=== PATIENT | male | born 1975 | race Caucasian/White ===

== ENCOUNTER 2019-05-09 16:32 | Inpatient (IN) ==
[2019-05-09 16:44] LABS: Basophils # 0.1 K/mm3 (0-0.2); Basophils % 0.9 % (0.1-2.0); Eosinophils # 0.3 K/mm3 (0.0-0.4); Eosinophils % 2.3 % (0.1-12.0); Hematocrit 45.1 % (42.0-52.0); Hemoglobin 14.6 g/dL (14.1-18.0); Lymphocytes # 2.5 K/mm3 (0.7-4.5); Lymphocytes % 21.4 % (10-50); Mean Corpuscular HGB Conc 32.5 g/dL (31.8-35.4); Mean Platelet Volume 7.9 fl (7.4-10.4); Monocytes # 0.8 K/mm3 (0.1-1.0); Monocytes % 7.1 % (1.7-9.3); Neutrophils # 8.1 K/mm3 (1.8-7.8); Neutrophils % 68.2 % (37.0-80.0); Platelet Count 243 K/mm3 (142-424); Red Cell Distribution Width 12.2 % (11.5-17.5); White Blood Count 11.8 K/mm3 (4.8-10.8)
[2019-05-09 16:52] LABS: Anion Gap 10.3 mEq/L (5-15); Calcium 8.7 mg/dL (8.5-10.1)
--- NOTE | 2019-05-09 17:02 | Emergency Department Note ---
ED Disposition Clinical Impression: Acute OR, Non-STEMI (non-ST elevated myocardial infarction) Disposition: Admitted as Observation Condition on Discharge: Serious Referrals: Provider,Referral, [Primary Care Provider] - Time of Disposition: 19:09 - Critical Care Critical Care Time: No Attestation: On 05/09/19, the high probability of a clinically significant, sudden or life threatening deterioration of the following system(s) required my full and direct attention, intervention and personal management. The time I documented below is in addition to time spent performing reported procedures but includes the following listed in this critical care notation. Medical Decision Making - Medical Records Medical records reviewed: Yes: I reviewed the patient's medical records. - Georges Inquiry Pt receiving controlled substance: No Georges was queried for this patient: No Vital Signs: 05/09/19 16:33 05/09/19 16:42 05/09/19 18:02 Temperature 98.1 F Temperature Source Oral Pulse Rate [Right Apical] 92 H 70 Respiratory Rate 18 20 Blood Pressure [Right Arm] 194/113 H 182/108 H 144/97 H Blood Pressure Mean [Right Arm] 140 132 112 Blood Pressure Source [Right Arm] Automatic Cuff Blood Pressure Position [Right Arm] Sitting 02 Sat by Pulse Oximetry 98 98 Oxygen Delivery Method Room Air Room Air - Lab Data Lab results reviewed: Yes: I reviewed the patient's lab results. Lab Results 05/09/19 16:37: WBC 11.8 H, RBC 4.90, Hgb 14.6, Hct 45.1, MCV 92.0, MCH 29.9, MCHC 32.5, RDW 12.2, Plt Count 243, MPV 7.9, Neut % (Auto) 68.2, Lymph % (Auto) 21.4, Ellis % (Auto) 7.1, Eos % (Auto) 2.3, Baso % (Auto) 0.9, Neut # (Auto) 8.1 H, Lymph # (Auto) 2.5, Ellis # (Auto) 0.8, Eos # (Auto) 0.3, Baso # (Auto) 0.1 05/09/19 16:37: Sodium 134 L, Potassium 3.7, Chloride 97 L, Carbon Dioxide 27, Anion Gap 10.3, BUN 5 L, Creatinine 0.85, Estimated Creat Clear 120, Estimated GFR 99, Est GFR ( Amer) 120, Glucose 126 H, Calcium 8.7, Troponin I 26.88 H Result diagrams: 05/09/19 16:37 05/09/19 16:37 Orders (Tests/Meds): ED MEDICATIONS Generic Name Dose Route Start Last Admin Trade Name Freq PRN Reason Stop Dose Admin Hydralazine HCl 10 mg 05/09/19 18:47 Apresoline 20mg/Ml 1ml Vial IV 05/09/19 18:48 ONCE ONE Nitroglycerin/Dextrose 250 mls @ 3 mls/hr 05/09/19 17:30 Nitroglycerin 50mg/250ml D5w IV 06/08/19 17:29 .Q24H SAKINA Protocol 10 MCG/MIN Nitroglycerin 0.4 mg 05/09/19 16:36 05/09/19 16:41 Nitrostat 0.4mg Sl Tablet SL 05/10/19 16:36 0.4 mg Q5MINP PRN Administration Chest Pain Discontinued Medications Generic Name Dose Route Start Last Admin Trade Name Freq PRN Reason Stop Dose Admin Aspirin 162 mg 05/09/19 16:36 05/09/19 16:41 Aspirin 81mg Chewable Tablet PO 05/09/19 16:37 162 mg ONCE ONE Administration Metoprolol Tartrate 5 mg 05/09/19 17:24 05/09/19 17:58 Metoprolol Tartrate 5mg/5ml Vial IV 05/09/19 17:25 5 mg ONCE ONE Administration Metoprolol Tartrate 5 mg 05/09/19 17:25 05/09/19 18:00 Metoprolol Tartrate 5mg/5ml Vial IV 05/09/19 17:26 5 mg ONCE ONE Administration Metoprolol Tartrate 5 mg 05/09/19 18:03 05/09/19 17:53 Metoprolol Tartrate 5mg/5ml Vial IV 05/09/19 18:04 5 mg ONCE ONE Administration Ticagrelor 180 mg 05/09/19 17:24 05/09/19 17:27 Brilinta 90mg Tablet PO 05/09/19 17:25 180 mg ONCE ONE Administration ORDERS Category Date Time Status Troponin I Q3H Lab 05/09/19 19:45 Ordered Troponin I Q3H Lab 05/09/19 22:45 Ordered - Physician Consults Physician Consulted: MD cosme Time: 18:49 Comment/Response: non-stemi per Cosme. Troponin elevated > 26.8 Patient had symptoms started over 16 hours prior as he attested with chief complaint. Relates he refused transport to hospital last night. He presents secondary to persistent pain "won't go away". No documented history of prior OR but strong family history. Anti-hypertensives were initiated as initial bp was 194/113 Additional Consult: MD Cedric Time: 18:55 Reason -: Admission, Pt condition, Cardiology Eval/Care Comment/Response: admit Cedric bp control - SAGE Score for Non-Stemi Age of Patient: 40-49 years old Heart Rate: 90-109 bpm Systolic Blood Pressure: 160-199 mmHg Serum Creatinine: 0.80-1.19 mg/dl CHF Killip Class: I-No CHF Other Risk Factors: Elevated Cardiac Enzymes or Biomarkers Non-Stemi Risk Score: 71 General Adult HPI - General Chief complaint: Chest Pain Stated complaint: CHEST PAIN Time Seen by Provider: 05/09/19 16:54 Mode of Arrival: Ambulatory Source of Information: Patient, Relative Limitations: No Limitations Description of Symptoms (Recalled from ER Triage Doc. by RN): PT C/O "I HAD A HEART ATTACK LAST NIGHT AND NOW I STILL HAVE CHEST PAIN." PT STATES TH EPAIN IS ONLY IN THE MIDDLE OF HIS CHEST. PT STATES HE HAS TAKEN 2 ASP. - History of Present Illness HPI narrative: chest pain since 11 pm last night. c.c. " I had a heart attack " Relates to strong family history. He denies any chronic diagnoses but also admits he doesn't like doctors. BP up on arrival. - Related Data Home Medications Medication Instructions Recorded Confirmed No Known Home Medications 05/09/19 05/09/19 Allergies Allergy/AdvReac Type Severity Reaction Status Date / Time No Known Allergies Allergy Verified 05/21/18 09:53 [facility] History - Hepatitis A Screen Drug use history?: No High risk sexual behaviors?: No History of sexually transmitted infection?: No Currently employed?: No Childcare worker?: No Do you have indoor plumbing?: Yes Do you have electricity?: Yes Attestation statement:: This patient has been screened for Hepatitis A risk factors. I have reviewed the patient's past medical history: Yes Medical History: Denies:: Cancer, Diabetes Mellitus Type 1, Diabetes Mellitus Type 2, MRSA Laterality Cases: Right: Arthroscopy Knee Amputation: No Fractures: No - Social History Smoking Status: Current every day smoker Tobacco Type: cigarettes Alcohol Intake: never Alcohol Intake Frequency:: 0-2 drinks per day Occupational Status: employed - Psychiatric History Expresses thoughts of harming self/others: None Suicide Plan Description: No Plan ROS Obtained: Yes All systems reviewed & no additional complaints - Constitutional Constitutional: Denies fever(s) - Cardiovascular Cardiovascular: Denies chest pain at rest, Denies irregular heart rhythm, Denies pedal edema, Denies rapid heart rate - Respiratory Respiratory: No chest congestion, No cough, Yes dyspnea - Gastrointestinal Gastrointestingal: Denies: abdominal pain, diarrhea - Musculoskeletal Musculoskeletal: Denies joint pain, Denies joint swelling, Denies numbness - Integumentary/Breasts Skin/Breast: Denies jaundice, Denies rash, Denies skin pain - Neurologic Neurologic: Denies dizziness, Denies focal weakness, Denies syncope - Hematologic/Lymphatic Henatologic/Lymphatic: Denies easy bleeding Physical Exam - General General appearance: alert, in no apparent distress - Head Head exam: atraumatic, normocephalic, normal inspection - Eye Eye exam: Present: normal appearance, PERRL, EOMI - ENT ENT exam: Present: normal exam, normal oropharynx, mucous membranes moist, TM's normal bilaterally, normal external ear exam - Neck Neck exam: Present: normal inspection. Absent: trachea midline - Chest Chest inspection: Present: normal inspection, symmetric chest wall rise. Absent: tenderness - Respiratory Respiratory exam: Present: normal lung sounds bilaterally. Absent: respiratory distress - Cardiovascular Cardiovascular exam: Present: regular rate, normal rhythm. Absent: JVD - Abdominal Exam Abdominal exam: Present: soft, normal bowel sounds. Absent: distention, tenderness, guarding - Extremities Exam Extremities exam: Present: normal inspection, full ROM, normal capillary refill. Absent: calf tenderness - Back Exam Back exam: Present: normal inspection. Absent: tenderness - Neurological Exam Neurological exam: Present: alert, oriented X3 - Psychiatric Psychiatric exam: Present: normal affect, normal mood - Skin Skin exam: Present: warm, dry, intact, normal color - Lymphatic Lymphatic Findings: no adenopathy
--- NOTE | 2019-05-10 07:25 | Pharmacy Consult Notes ---
[facility] Pharmacy VTE Monitoring - Patient Demographics Admission date: 05/09/19 Report Date: 05/10/19 Time: 07:25 Allergies/Adverse Reactions: Patient Allergies No Known Allergies Allergy (Verified 05/21/18 09:53) Height: 1.88 m Weight: 68.521 kg Patient Problems: Current Active Problems (Updated 05/09/19 @ 19:09 by Saran Rivera MD) Acute NV (Acute) Non-STEMI (non-ST elevated myocardial infarction) (Acute) - VTE Risk Labs: VTE Related Lab Results Hgb 14.6 g/dL (14.1-18.0) 05/09/19 16:37 Hct 45.1 % (42.0-52.0) 05/09/19 16:37 Plt Count 243 K/mm3 (142-424) 05/09/19 16:37 BUN 5 mg/dL (7-18) L 05/09/19 16:37 Creatinine 0.85 mg/dL (0.70-1.30) 05/09/19 16:37 Estimated Creat Clear 120 mL/min (50-200) 05/09/19 16:37 Was VTE Risk Assessment Performed: No VTE Score: 3 VTE Risk Level: Low Risk - Prophylaxis VTE Prophylaxis Ordered?: Yes Types of VTE Prophylaxis: TEDS Knee High Location of Applied Device: Bilateral Lower Extremeties - VTE Diagnosis Confirmed Treatment or plan recommended: Continue Current Treatment
--- NOTE | 2019-05-10 07:26 | Consult Report ---
History of Present Illness Consult date: 05/10/19 Requesting physician: Humberto Angeles Consult reason: chest pain Chief complaint: NSTEMI Additional Medical History:: 1. CAD A. NSTEMI 2. HTN, 04/2019 3. Strong FH of early CAD in father and two brothers in their early 40's 4. Tobacco use 5. ETOH use History of present illness: 43 yo WM presented for evaluation of chest pain that began the evening of 05/08/2019 at about 10:00 at night. Symptoms were severe for about 3 hours including nausea, vomiting, diaphoresis and shortness of breath. Patient did not seek medical attention until the afternoon of 05/09/2019 at about 3 PM. He only came to the emergency department at that point because the symptoms would not resolve. EKG is sinus rhythm with left axis deviation with no acute ST segment elevation. Initial troponin was greater than 26 and patient was admitted for non-ST elevation AL. He was not immediately taken to the cardiac Tie Binder because he was already greater than 16 hours into the AL. Telemetry overnight did show one 11 beat run of V. tach. Patient has been placed on nitroglycerin drip due to elevated blood pressure and chest pain. This a.m. symptoms are significantly improved he now just has chest soreness. Patient did receive aspirin, loading dose of Brilinta, Lovenox and metoprolol in the ER. Patient admits to alcohol use and relates an episode of vomiting blood approximately 3 weeks ago with no further recurrence after the one episode. Patient smokes up to 2 packs/day. He denies treatment for hypertension, hyperlipidemia or diabetes in the past. He has a strong family history of early coronary artery disease in male family members in the early 40s. [facility] History Medical History: Denies:: Cancer, Diabetes Mellitus Type 1, Diabetes Mellitus Type 2, Internal Pacemaker, MRSA *Have you ever received a pneumonia vaccine?: No (not necessary) *Have you received a flu vaccine this season?: No (Refused) Laterality Cases: Right: Arthroscopy Knee Other Surgeries: No: Pacemaker Amputation: No Fractures: No - *Social History Educational Level: Attended Grade School Smoking Status: Current every day smoker Tobacco Type: cigarettes # Packs/Day (cigarettes): 2 Alcohol Intake: current Alcohol Intake Frequency:: 3 or more drinks per day *Occupational Status:: unemployed Housing: apartment *Travel in the last 8 weeks: None - Psychiatric History Expresses thoughts of harming self/others: None Suicide Plan Description: No Plan Family Hx:: Cancer, Diabetes, Heart Attack, Hyperlipidemia, Hypertension Meds Home Medications Medication Instructions Recorded Confirmed Type raNITIdine HCl [Zantac 150mg] 150 mg PO DAILY 05/09/19 05/09/19 History Allergies Allergy/AdvReac Type Severity Reaction Status Date / Time No Known Allergies Allergy Verified 05/21/18 09:53 Review of Systems - *Cardiovascular Reports chest pain, Reports shortness of breath - *Respiratory Reports shortness of breath - *Gastrointestinal Reports nausea, Reports vomiting, Denies abdominal pain - *Genitourinary Denies blood in urine - *Musculoskeletal Denies joint pain, Denies back pain - *Neurologic Denies dizziness, Denies localized weakness, Denies numbness, Denies fainting Exam Vital signs and Labs for Last 24 Hours: Temp Pulse Resp BP Pulse Ox 98.3 F 78 12 129/86 98 05/10/19 04:30 05/10/19 07:00 05/10/19 07:00 05/10/19 07:00 05/10/19 07:00 Laboratory Results - last 24 hr 05/09/19 16:37: WBC 11.8 H, RBC 4.90, Hgb 14.6, Hct 45.1, MCV 92.0, MCH 29.9, MCHC 32.5, RDW 12.2, Plt Count 243, MPV 7.9, Neut % (Auto) 68.2, Lymph % (Auto) 21.4, [place] % (Auto) 7.1, Eos % (Auto) 2.3, Baso % (Auto) 0.9, Neut # (Auto) 8.1 H, Lymph # (Auto) 2.5, [place] # (Auto) 0.8, Eos # (Auto) 0.3, Baso # (Auto) 0.1 05/09/19 16:37: Sodium 134 L, Potassium 3.7, Chloride 97 L, Carbon Dioxide 27, Anion Gap 10.3, BUN 5 L, Creatinine 0.85, Estimated Creat Clear 120, Estimated GFR 99, Est GFR ( Amer) 120, Glucose 126 H, Calcium 8.7, Troponin I 26.88 H 05/09/19 19:40: Troponin I 27.22 H 05/09/19 22:35: Troponin I 21.60 H I & O for Last 24 hours: Intake & Output 05/07/19 05/08/19 05/09/19 05/10/19 11:59 11:59 11:59 11:59 Intake Total 1730 / 1730 Output Total 675 / 675 Balance 1055 / 1055 Weight 151 lb 1 oz - *Routine HEENT Exam Head: Present: normocephalic Eye: Present: EOMI, PERRL ENT: Present: mucous membranes moist - *Routine Neck Exam Present: supple. Absent: JVD, carotid bruit - *Routine Respiratory Exam Present: CTA bilaterally. Absent: accessory muscle use, rales, rhonchi, wheezes - *Routine Cardiovascular Exam Present: RRR. Absent: murmur, gallop, rubs - *Routine Abdominal Exam Present: soft. Absent: tenderness, distended, guarding - *Routine Extremities Exam Absent: edema, calf tenderness - *Routine Neurological Exam Present: alert, oriented X3, moving all extremities Assessment and Plan (1) Non-STEMI (non-ST elevated myocardial infarction) Current visit: Yes Status: Acute Category: Medical Code(s): I21.4 - Non-ST elevation (NSTEMI) myocardial infarction (2) Hypertensive urgency Current visit: Yes Status: Acute Category: Medical Code(s): I16.0 - Hypertensive urgency (3) Tobacco use Current visit: Yes Status: Acute Category: Medical Code(s): Z72.0 - Tobacco use (4) Alcohol use Current visit: Yes Status: Acute Category: Social Hx Code(s): Z78.9 - Other specified health status (5) Family history of early CAD Current visit: Yes Status: Acute Category: Medical Code(s): Z82.49 - Family history of ischemic heart disease and other diseases of the circulatory system - Assessment and plan all Dx Assessment and Plan for all problems:: 1. Continue aspirin 81 mg daily and Brilinta 90 mg twice daily. 2. Begin metoprolol 25 mg twice daily and attempt to wean off of nitro drip. Consider adding KRISHNA inhibitor as needed. 3. We will obtain an echocardiogram to evaluate left ventricular size, function and valve status. 4. Risks, benefits and procedure of left heart catheterization explained to the patient and he agrees to proceed. 5. Start atorvastatin 40 mg daily. 6. Further recommendations to follow pending above results.
--- NOTE | 2019-05-10 07:59 | History & Physical Report ---
*Admission Date: 05/09/19 *Chief complaint: "I had a heart attack last night" *History of present illness: Mr. Mkceon is a 43 yo WM who presented to the ER for evaluation of chest pain that began the evening of 05/08/2019 at about 10:00 at night. Sx most severe over a 3 hour span with nausea, vomiting, diaphoresis and shortness of breath. Obtained from ODALIS Dean documentation "Patient did not seek medical attention until the afternoon of 05/09/2019 at about 3 PM. He only came to the emergency department at that point because the symptoms would not resolve. EKG is sinus rhythm with left axis deviation with no acute ST segment elevation. Initial troponin was greater than 26 and patient was admitted for non-ST elevation SC. He was not immediately taken to the cardiac Pediatric Audiologist because he was already greater than 16 hours into the SC. Telemetry overnight did show one 11 beat run of V. tach. Patient has been placed on nitroglycerin drip due to elevated blood pressure and chest pain. This a.m. symptoms are significantly improved he now just has chest soreness. Patient did receive aspirin, loading dose of Brilinta, Lovenox and metoprolol in the ER." Of note, Mr. mckeon is a daily drinker and heavy smoker, 2pk/day for >20yrs. He denies treatment for hypertension, hyperlipidemia or diabetes in the past. He has a strong family history of early coronary artery disease in male family members in the early 40s. Denies any other Sx of SOA, GRAY, N/V/D, fatigue, syncope. CP resolved at this time due to Nitro gtt. [facility] History I have reviewed the patient's past medical history: Yes Medical History: Denies:: Cancer, Diabetes Mellitus Type 1, Diabetes Mellitus Type 2, Internal Pacemaker, MRSA *Have you ever received a pneumonia vaccine?: No (not necessary) *Have you received a flu vaccine this season?: No (Refused) Laterality Cases: Right: Arthroscopy Knee Other Surgeries: No: Pacemaker Amputation: No Fractures: No - *Social History Educational Level: Attended Grade School Smoking Status: Current every day smoker Tobacco Type: cigarettes # Packs/Day (cigarettes): 2 Alcohol Intake: current Alcohol Intake Frequency:: 3 or more drinks per day *Occupational Status:: unemployed Housing: apartment *Travel in the last 8 weeks: None - Psychiatric History Expresses thoughts of harming self/others: None Suicide Plan Description: No Plan Family Hx:: Cancer, Diabetes, Heart Attack, Hyperlipidemia, Hypertension Review of Systems - Review of Systems Review of systems:: pertinent systems reviewed and negative unless documented below - *Neurologic Denies dizziness, Denies localized weakness, Denies numbness, Denies fainting Meds Home Medications Medication Instructions Recorded Confirmed Type raNITIdine HCl [Zantac 150mg] 150 mg PO DAILY 05/09/19 05/09/19 History Allergies Allergy/AdvReac Type Severity Reaction Status Date / Time No Known Allergies Allergy Verified 05/21/18 09:53 Exam Vital signs and Labs for Last 24 Hours: Temp Pulse Resp BP Pulse Ox 98.3 F 78 12 129/86 98 05/10/19 04:30 05/10/19 07:00 05/10/19 07:00 05/10/19 07:00 05/10/19 07:00 Laboratory Results - last 24 hr 05/09/19 16:37: WBC 11.8 H, RBC 4.90, Hgb 14.6, Hct 45.1, MCV 92.0, MCH 29.9, MCHC 32.5, RDW 12.2, Plt Count 243, MPV 7.9, Neut % (Auto) 68.2, Lymph % (Auto) 21.4, [place] % (Auto) 7.1, Eos % (Auto) 2.3, Baso % (Auto) 0.9, Neut # (Auto) 8.1 H, Lymph # (Auto) 2.5, [place] # (Auto) 0.8, Eos # (Auto) 0.3, Baso # (Auto) 0.1 05/09/19 16:37: Sodium 134 L, Potassium 3.7, Chloride 97 L, Carbon Dioxide 27, Anion Gap 10.3, BUN 5 L, Creatinine 0.85, Estimated Creat Clear 120, Estimated GFR 99, Est GFR ( Amer) 120, Glucose 126 H, Calcium 8.7, Troponin I 26.88 H 05/09/19 19:40: Troponin I 27.22 H 05/09/19 22:35: Troponin I 21.60 H I & O for Last 24 hours: Intake & Output 05/07/19 05/08/19 05/09/19 05/10/19 23:59 23:59 23:59 23:59 Intake Total 1200 / 1200 530 / 530 Output Total 675 / 675 Balance 525 / 525 530 / 530 Weight 68.521 kg 68.521 kg - *Routine HEENT Exam Head: Present: normocephalic Eye: Present: EOMI, PERRL ENT: Present: mucous membranes moist Comments: poor dentition - *Routine Neck Exam Present: supple. Absent: lymphadenopathy - *Routine Respiratory Exam Present: CTA bilaterally, prolonged expiratory phase - *Routine Cardiovascular Exam Present: RRR. Absent: murmur - *Routine Abdominal Exam Present: soft, normoactive bowel sounds. Absent: tenderness - *Routine Extremities Exam Absent: cyanosis, clubbing, edema - *Routine Skin Exam Present: warm. Absent: rash Comments: multiple crude tattoos - *Routine Neurological Exam Present: alert, oriented X3 - Detailed Eye Exam Eyelids: Left normal inspection Assessment and Plan (1) Non-STEMI (non-ST elevated myocardial infarction) Current visit: Yes Status: Acute Category: Medical Code(s): I21.4 - Non-ST elevation (NSTEMI) myocardial infarction (2) Hypertensive urgency Current visit: Yes Status: Acute Category: Medical Code(s): I16.0 - Hypertensive urgency (3) Tobacco use Current visit: Yes Status: Acute Category: Medical Code(s): Z72.0 - Tobacco use (4) Alcohol use Current visit: Yes Status: Acute Category: Social Hx Code(s): Z78.9 - Other specified health status (5) Family history of early CAD Current visit: Yes Status: Acute Category: Medical Code(s): Z82.49 - Family history of ischemic heart disease and other diseases of the circulatory system - Assessment and plan all Dx Assessment and Plan for all problems:: Sabi mckeon is a 43-year-old male who presents with significant elevation in troponin and concern for SC. Cardiology consulted, planning to go to the Pediatric Audiologist today for intervention. Continue nitroglycerin drip in the interim as it is resolved his chest pain. Troponin decreased over the past 12 hours however still elevated at 21. Given tobacco and alcohol use daily, will monitor for withdrawal symptoms. Patient denies ever having had DTs. Appreciate cardiology recommendations. Continues to require inpatient management pending her cath. NPO until heart cath performed.
--- NOTE | 2019-05-11 06:28 | Cardiology Report ---
PROCEDURE: 2-D M-mode and color Doppler study INDICATIONS FOR THE TEST: Chest pain X COPD Heart Murmur Tobacco SmokingX Palpitations Fatigue Syncope Edema Hypertension Diabetes Mellitus Rheumatic Fever SOB GALLEGOS Obesity Hyperlipidemia Family History HD Additional History NSTEMI PATIENT INFORMATION HEIGHT: 74 WEIGHT:151 GENDER: Male B/P:129/86 2-D/M-MODE INTERPRETATION: 2-D MEASUREMENTS OBSERVED VALUES IN CMS Right Ventricular Dimension (RVDd) 2.2 Interventricular Septum (Thickness)(IVsd) .8 Left Ventricular Internal Dimensions(LVIDd) 4.8 Left Ventricular Posterior Wall (Thickness)(LVPWd) 1.2 Aortic Root 3.5 Aortic Cusp Separation 2.5 Left Atrial Dimensions (LAD) 2.2 2D 1. Left atrium is normal size, left ventricle is normal size, there is no concentric left ventricular hypertrophy, visually estimated ejection fraction approximately 45%, there appears to be moderate hypokinesis involving the distal septum, apex and anteroapical and inferior apical wall. 2. The right atrium and ventricle are normal size and contractility. 3. The aortic valve is minimally thickened and fibrosed. 4. The mitral and tricuspid valvular grossly normal. 5. Pulmonic valve is poorly visualized. 6. No significant Pericardial effusion noted. DOPPLER INTERROGATION: Doppler interrogation of the aortic, mitral and tricuspid valvular presence of mild mitral and tricuspid regurgitation, tricuspid regurgitation jet velocity is inadequate for calculation of the right ventricular systolic pressure, diastolic parameters are inconclusive. Inferior vena cava is not well visualized CONCLUSION: 1. Normal left ventricular size, visually estimated ejection fraction 45% with multiple segmental motion abnormality, diastolic parameters are inconclusive. 2. Mild mitral and tricuspid regurgitation 3. No significant pericardial effusion noted.
--- NOTE | 2019-05-11 07:29 | Discharge Summary ---
General - General Admission date:: 05/09/19 Discharge date: 05/11/19 HPI HPI: Mr. Brand is a 43 yo WM who presented to the ER for evaluation of chest pain that began the evening of 05/08/2019 at about 10:00 at night. Sx most severe over a 3 hour span with nausea, vomiting, diaphoresis and shortness of breath. Obtained from ODALIS Dean documentation "Patient did not seek medical attention until the afternoon of 05/09/2019 at about 3 PM. He only came to the emergency department at that point because the symptoms would not resolve. EKG is sinus rhythm with left axis deviation with no acute ST segment elevation. Initial troponin was greater than 26 and patient was admitted for non-ST elevation AK. He was not immediately taken to the cardiac [facility] because he was already greater than 16 hours into the AK. Telemetry overnight did show one 11 beat run of V. tach. Patient has been placed on nitroglycerin drip due to elevated blood pressure and chest pain. This a.m. symptoms are significantly improved he now just has chest soreness. Patient did receive aspirin, loading dose of Brilinta, Lovenox and metoprolol in the ER." Of note, Mr. brand is a daily drinker and heavy smoker, 2pk/day for >20yrs. He denies treatment for hypertension, hyperlipidemia or diabetes in the past. He has a strong family history of early coronary artery disease in male family members in the early 40s. Denies any other Sx of SOA, GRAY, N/V/D, fatigue, syncope. CP resolved at this time due to Nitro gtt. Hospital Course Hospital Course: Patient was admitted, ruled in for non-STEMI. Cardiac cath was obtained the following morning, and results were noted as below: ANGIOGRAPHIC RESULTS: 1. The left anterior descending artery originates in the left coronary cusp and is proximally normal. There is a mid vessel 30% stenosis followed by concentric 40-50% stenosis immediately adjacent to a small to medium second diagonal artery. The remaining vessel is small caliber with no focal stenosis greater than 10% 2. The circumflex artery originates in the left coronary cusp with its own ostium. This vessel is angiographically normal 3. The right coronary artery is a large dominant vessel with proximal 10-20% stenosis along mid vessel smooth 20-30% stenosis. Distally the vessel has 20% stenoses in the takeoff of the posterior descending and posterior lateral branch. The posterior lateral branch has a mid vessel 50% stenosis at a 2.75 mm vessel. The PDA is occluded at its very distal segment where the vessel is less than 1.5 mm in diameter. 4. The [facility] ventriculogram reveals reduced ejection fraction estimated at 50%. There is inferior apical hypokinesis 5. The left ventricular end-diastolic pressure 10 mmHg IMPRESSION: 1. Coronary artery disease as described above with a notably occluded distal posterior descending artery 2. Regional wall motion abnormality consistent with a distal PDA occlusion 3. Moderate disease as described above 4. Normal left ventricular end-diastolic pressure PLAN: 1. Medical management. The distal nature of the occlusion does not for revascularization. The patient presented over 18 hours into an acute onset chest pain. This warrants medical management 2. Beta blockers pily inhibitors 3. LDL less than 55 4. Dual antiplatelet therapy for one year 5. Medical management for remaining coronary artery disease 6. Avoidance of tobacco products Patient did well overnight after the cath, he will be discharged home with antiplatelet therapy, blood pressure medication and atorvastatin. He will be followed up in cardiology in 1 week and with our offices in 1 week. Objective Vital signs: Temp Pulse Resp BP Pulse Ox 98.5 F 68 20 120/81 99 05/11/19 04:00 05/11/19 04:00 05/11/19 04:00 05/11/19 04:00 05/11/19 04:00 Narrative: Patient is alert. Oriented x3. Evidence of nicotine damage to his teeth. Heart rate regular. Lungs clear except for smoker's rhonchi, abdomen soft and nontender, extremities without edema or clubbing, neurologically intact. DS: Diagnosis - Discharge Diagnosis (1) Non-STEMI (non-ST elevated myocardial infarction) Status: Resolved (2) Hypertensive urgency Status: Resolved (3) Tobacco use Status: Chronic (4) Alcohol use Status: Chronic (5) Family history of early CAD Status: Chronic Discharge Plan - Patient Discharge Instructions ACTIVITY: Continue current activity, Limited activity DIET: continue same diet Patient Instructions: Cardiac Troponin, DI for Heart Attack, Heart Attack, Angina, Cardiac Catheterization, Electrocardiogram, Heart-Healthy Diet, DI for Angina, DI for Cardiac Catheterization, Surgical Site Infection, Metoprolol, Apixaban - Follow up Plan Follow up with: Humberto Angeles MD [Staff Physician] - 05/17/19 Henrique Saravia MD [Staff Physician] - 1 week Disposition: Home, Self-Long Term Medications: Home Medications Medication Instructions Recorded Confirmed Type Aspirin [Aspirin 81mg chewable 81 mg PO DAILY #30 tab.chew 05/11/19 Rx tab] Atorvastatin Calcium [Lipitor 40mg 40 mg PO HS #30 tab 05/11/19 Rx Tablet] Metoprolol Tartrate [Lopressor 25 mg PO BID #60 tab 05/11/19 Rx 25mg tablet] Ticagrelor [Brilinta 90mg Tablet] 90 mg PO BID #60 tab 05/11/19 Rx raNITIdine HCl [Zantac 150mg] 150 mg PO DAILY #30 tab 05/11/19 Rx Prescriptions/Medication Reconciliation: New Aspirin [Aspirin 81mg chewable tab] 81 mg PO DAILY #30 tab.chew Ticagrelor [Brilinta 90mg Tablet] 90 mg PO BID #60 tab Metoprolol Tartrate [Lopressor 25mg tablet] 25 mg PO BID #60 tab Atorvastatin Calcium [Lipitor 40mg Tablet] 40 mg PO HS #30 tab Continued raNITIdine HCl [Zantac 150mg] 150 mg PO DAILY #30 tab
--- NOTE | 2019-05-11 07:41 | Progress Note ---
Subjective Date: 05/11/19 Time: 07:39 Principal diagnosis: NSTEMI Interval history: 43-year-old white male in bed in no acute distress. Denies any chest pain. Telemetry shows no further episodes of ventricular tachycardia. Patient is anxious to go home today. Exam Vital signs and Labs for Last 24 Hours: Temp Pulse Resp BP Pulse Ox 98.5 F 68 20 120/81 99 05/11/19 04:00 05/11/19 04:00 05/11/19 04:00 05/11/19 04:00 05/11/19 04:00 I & O for Last 24 hours: Intake & Output 05/08/19 05/09/19 05/10/19 05/11/19 11:59 11:59 11:59 11:59 Intake Total 1730 / 1730 1541 / 1541 Output Total 675 / 675 1300 / 1300 Balance 1055 / 1055 241 / 241 Weight 151 lb 1 oz 153 lb - *Routine HEENT Exam Head: Present: normocephalic Eye: Present: EOMI, PERRL ENT: Present: mucous membranes moist - *Routine Respiratory Exam Present: CTA bilaterally. Absent: accessory muscle use, rales, rhonchi, wheezes - *Routine Cardiovascular Exam Present: RRR. Absent: murmur, gallop, rubs - *Routine Neurological Exam Present: alert, oriented X3, moving all extremities Progress Note: A&P (1) Non-STEMI (non-ST elevated myocardial infarction) Status: Resolved Current Visit: Yes (2) Hypertensive urgency Status: Resolved Current Visit: Yes (3) Tobacco use Status: Chronic Current Visit: Yes (4) Alcohol use Status: Chronic Current Visit: Yes (5) Family history of early CAD Status: Chronic Current Visit: Yes Assessment and Plan for All Diagnoses:: Cardiac status stable for discharge home. Continue dual antiplatelet therapy (aspirin and Brilinta) along with metoprolol and ARB therapy along with statin therapy. Follow-up in our office in 1 week. Tobacco cessation encouraged.
[2019-05-11 07:46] VITALS: BP 133/88
== END 2019-05-11 09:52 | disposition home or self-care (01) | DRG 282 ==
LOC: 2ND 16:32 → ER 16:32 → OBSVTOIN 20:15 → 2ND 20:16
PROVIDERS: ADMIT Internal Medicine Adolescent Medicine; ATTEND Internal Medicine Adolescent Medicine
CPT/HCPCS: 36415; 71020; 71046; 80048; 84484; 85025; 93005; 93306; 96365; 96367; 96375; 99152; 99284; C1725; C1769; J1644; Q9967